=== PATIENT | female | born 2005 | race African-American/Black ===

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

== ENCOUNTER 2024-06-23 10:26 | Inpatient (IN) | payer MEDICAID ==
[2024-06-20 11:15] LABS: Hemoglobin 10.6 g/dL (12.0-15.5); Platelet Count 300 10x3/uL (150-450)
[2024-06-20 12:23] LABS: Syphilis Antibody Nonreactive (Nonreactive); Syphilis Antibody Index 0.09 S/CO (<1.00 Non-Reactive)
[2024-06-20 13:23] LABS: HBsAg Index 0.21 S/CO (0-0.99); HIV (1/2) Antibody/Antigen Non-Reactive (NonReactive); HIV 1/2 INDEX 0.07 S/CO (<1.00); Hep B Surf Ag Non-Reactive S/CO (NonReactive)
[2024-06-23] MEDS ORDERED: Lactated Ringer's 1,000 ML IV SCH (10:35)
[2024-06-23] MEDS ORDERED: Ondansetron PF 4 MG/2 ML Vial IVP PRN ×2 (10:35→11:10)
[2024-06-23] MEDS ORDERED: Bicitra 30 ML UDCUP PO PRN (10:35)
[2024-06-23] MEDS ORDERED: Promethazine HCl 25 MG/ML VIAL IM PRN ×2 (10:35→11:10)
[2024-06-23] MEDS ORDERED: hydrALAZINE 20 MG/ML VIAL SLOW IVP PRN (10:35)
[2024-06-23] MEDS ORDERED: Oxytocin 30 units/NS 500 ML 500 ML IV SCH (10:35)
[2024-06-23 10:52] VITALS: BMI 51.7
[2024-06-23] MEDS ORDERED: Naloxone HCl 0.4 mg/ml Vial IV PRN (11:10)
[2024-06-23] MEDS ORDERED: fentaNYL 50 mcg/mL 1 mL Vial SLOW IVP PRN (11:10)
[2024-06-23] MEDS ORDERED: diphenhydrAMINE 50 MG/ML VIAL IVP PRN (11:10)
[2024-06-23] MEDS ORDERED: Naloxone HCl 0.4 mg/ml Vial IVP PRN ×2 (11:10)
[2024-06-23] MEDS ORDERED: Meperidine HCl/PF 25 MG (1 mL) VIAL SLOW IVP PRN (11:10)
[2024-06-23] MEDS ORDERED: HYDROmorphone 0.5 MG/0.5 ML SYRINGE SLOW IVP PRN (11:10)
[2024-06-23] MEDS ORDERED: Moisturizing Cream (Eucerin) 113 GM JAR TOP PRN (11:10)
[2024-06-23] MEDS ORDERED: Ketorolac Tromethamine 30 MG (1 mL) VIAL IVP SCH (11:15)
[2024-06-23] MEDS ORDERED: Communication Order-Pharmacy FS SCH (11:15)
[2024-06-23] MEDS: CEFAZOLIN 2 GM in Sodium Chloride 0.9% 100 ML IVPB SCH (11:21)
[2024-06-23] MEDS: Famotidine/PF 20 mg/2ml Vial SLOW IVP PRN (11:21)
[2024-06-23] MEDS ORDERED: Lanolin Ointment 7 GM TUBE TOP PRN (12:20)
[2024-06-23] MEDS ORDERED: diphenhydrAMINE 25 MG CAP PO PRN (12:20)
[2024-06-23] MEDS ORDERED: Bisacodyl 10 MG SUPP PR PRN (12:20)
[2024-06-23] MEDS: Ondansetron PF 4 MG/2 ML Vial ONE (13:17)
[2024-06-23] MEDS: Oxytocin 10 UNITS/ML VIAL ONE ×2 (13:17→13:18)
[2024-06-23] MEDS: Morphine PF 10 MG/10 ML VIAL ONE (13:17)
[2024-06-23] MEDS: PHENYLEPHRINE-NS 100 MCG/ML 10 ML SYRINGE ONE (13:17)
[2024-06-23] MEDS: Phytonadione Neonatal 1 MG/0.5 ML AMP ONE (13:18)
[2024-06-23] MEDS: Erythromycin Base 0.5% Oint 1 GM TUBE ONE (13:18)
[2024-06-23] MEDS: Hepatitis B Vaccine 10 MCG/0.5 ML SYR ONE (15:10)
[2024-06-23] MEDS: Ketorolac Tromethamine 30 MG (1 mL) VIAL IVP PRN (15:26)
[2024-06-23] MEDS: Ondansetron PF 4 MG/2 ML Vial IVP PRN (15:26)
[2024-06-23] MEDS: Docusate 100 MG CAP PO SCH (19:02)
[2024-06-23] MEDS: Boostrix 0.5 ML (Tdap) VIAL (>/=7 yrs of age) IM ONE (19:02)
[2024-06-23] MEDS: Ferrous Sulfate 325 MG TAB PO SCH (19:02)
[2024-06-23] MEDS ORDERED: HYDROcodone/Acetaminophen 5/325 mg Tablet PO PRN (23:15)
[2024-06-24] MEDS: HYDROcodone/Acetaminophen 5/325 mg Tablet PO PRN (00:28)
[2024-06-24 04:20] LABS: Hematocrit 28.5 % (34.9-44.5); Hemoglobin 9.1 g/dL (12.0-15.5); Mean Corpuscular HGB CONC 31.9 g/dL (32.0-36.0); Mean Corpuscular Hemoglobin 23.8 pg (27.0-33.0); Mean Corpuscular Volume 74.6 fL (81.6-98.3); Mean Platelet Volume 9.7 fL (7.4-10.4); Platelet Count 227 10x3/uL (150-450); RBC Distribution Width 19.9 % (11.5-14.5); Red Blood Cell (RBC) Count 3.82 10x6/uL (3.90-5.03); White Blood Cell (WBC) Count 11.3 10x3/uL (3.5-10.5)
[2024-06-24] MEDS: Simethicone Chewable 80 MG TAB PO PRN (10:53)
[2024-06-24] MEDS: Ibuprofen 800 MG TAB PO SCH (13:41)
[2024-06-25 07:47] VITALS: BP 106/55; TEMP 97.8
== END 2024-06-25 14:35 | disposition home or self-care (01) | DRG 788 ==
LOC: CSHLD 10:26 → CSHPP 14:43
PROVIDERS: ADMIT Obstetrics & Gynecology; ATTEND Obstetrics & Gynecology
PROC: 10D00Z1 Extraction of Products of Conception, Low, Open Approach (ICD-10-PCS; principal; 2024-06-23)
DX: O34.211 Maternal care for low transverse scar from previous cesarean delivery (principal); Z3A.39 39 weeks gestation of pregnancy; Z37.0 Single live birth; O99.214 Obesity complicating childbirth; E03.9 Hypothyroidism, unspecified; O99.284 Endocrine, nutritional and metabolic diseases complicating childbirth; O99.02 Anemia complicating childbirth; E66.01 Morbid (severe) obesity due to excess calories
CPT/HCPCS: 36415; 51702; 85014; 85018; 85027; 85049; 86780; 86850; 86900; 86901; 87340; 87389; J1885; J2274; J2405; J2590; J3490